=== PATIENT | male | born 1950 | race Caucasian/White ===

== ENCOUNTER 2017-02-20 08:59 | Outpatient (CLI) | payer OTHER ==
[2012-10-13 13:37] VITALS: BP 107/62
[2017-02-20 09:54] LABS: eGFR (African) > 60; eGFR (Non-African) > 60
== END 2017-02-20 09:00 ==
LOC: LAB 08:59
PROVIDERS: ATTEND Nurse Practitioner
DX: I10 Essential (primary) hypertension (principal)
CPT/HCPCS: 36415; 80048